=== PATIENT | male | born 1960 | race African-American/Black ===

== ENCOUNTER 2022-09-17 10:46 | Emergency (ER) | payer MEDICARE, MEDICAID, SELFPAY ==
[2022-09-17 10:58] VITALS: BP 140/61; PULSE 87; RESP 22; TEMP 36.6; O2SAT 98; BMI 31.3
[2022-09-17] MEDS: Ondansetron ODT 4 MG TAB.RAPDIS TRANSLINGU (11:02)
--- OUTSIDE RECORDS SUMMARY | 2022-09-17 15:05 | XMS_ITS | Continuity of Care Document ---
:1960 Author Organization [facility] [place] Address [address] [place] [address]- Care Team Providers Name Role Phone Warren Uribe MD Primary Care Physician Encounter [facility] ACCT R [id number] Date(s): 12/12/20 - 01/11/[address] [address]- Attending Physician: Admtr, Ar8 Allergies, Adverse Reactions, Alerts Substance Reaction Severity Status ampicillin hives Active penicillin hives Active Peanuts Active Immunizations Given and Recorded Vaccine Date Status Refusal Reason influenza virus vaccine, inactivated 10/27/18 Given influenza virus vaccine, inactivated 09/19/17 Given influenza virus vaccine, inactivated 11/15/15 Given influenza virus vaccine, inactivated 08/18/14 Given influenza virus vaccine, inactivated 09/15/13 Given influenza virus vaccine, inactivated 07/31/12 Given influenza virus vaccine, inactivated1 11/06/11 Given pneumococcal 23-valent vaccine 07/13/15 Given tetanus/diphtheria/pertussis, acel(Tdap) 01/01/14 Given Human Papillomavirus Vaccine2, 3 07/31/12 Given 1Admin Note: vis [id number] Comment: [id number] Note: VIS 05/19/2012 Medications Aerochamber See Instructions, # 1 each, Maintenance, to be used with albuterol, 12/05/18 15:15:26 EST, Compound Start Date: 12/05/18 Status: OrderedAutoCPAP 8-20 with heated humidification AutoCPAP 8-20 with heated humidification, See Instructions, # 1 each, Refills 0, Tot. Refills 0, Maintenance, use overnight and naps from [facility], 10/22/16 10:06:21, Compound Start Date: 10/22/16 Status: OrderedFlonase 50 mcg/inh nasal spray 2 sprays, Nares, Both, 2 times a day, in each nostril, # 1 each, 2 Refills, Maintenance, 12/12/20 8:15:00 EST, [place], [facility] #[id number], 2 sprays Nares, Both 2 times a day,x30 days,Instr:in each nostril, 170, cm, 12/08/20 0:11:00 EST, Height... Start Date: 12/12/20 Stop Date: 03/12/21 Status: Orderedomeprazole 40 mg oral enteric coated capsule 1 capsule, By Mouth, Daily, # 90 capsule, 0 Refills, Soft Stop, 12/19/20 13:28:00 EST, [facility] #[id number], 170, cm, 12/08/20 0:11:00 EST, Height, 95.1, kg, 12/08/20 0:11:00 EST, Dry Weight Start Date: 12/19/20 Stop Date: 03/19/21 Status: OrderedProAir HFA 90 mcg/inh inhalation aerosol with adapter 2, puffs, Inhalation, 4 times a day, PRN, # 1 each, Refills 5, Tot. Refills 5, Maintenance, 03/24/2012:39:00 EDT, Aerosol, Route to Pharmacy Electronically, [id number], [facility] #[id number], 170, cm, 10/13/19 14:35:00... Start Date: 03/24/20 Stop Date: 09/20/20 Status: OrderedSuprep Bowel Prep Kit oral liquid See Instructions, dose #1- 180 ml evening before colonoscopy, dose #2 - 6 hourse before colonoscopy,# 1 kit, 0 Refills, Acute 01/17/21 7:00:00 EST, 01/16/21 17:00:00 EST, [facility] #[id number], test date 01/17/21, dose #1- 180 ml evening before... Start Date: 01/16/21 Stop Date: 01/17/21 Status: Ordered Problem List Condition Effective Dates Status Health Status Informant Adult-onset obesity(Confirmed) Active Asthma(Confirmed)1 Active Bladder outlet obstruction; [facility] 02/09/11 Active 09/25/19(Confirmed) Nephroureterolithiasis-left(Confirmed) Active 2 Carpal tunnel syndrome of right Active wrist(Confirmed)3 Closed fracture of phalanx of right Active second toe(Confirmed) Diverticulosis of colon(Confirmed)4 Active Complete tear of rotator Active cuff(Confirmed)5, 6 Gastro-esophageal reflux(Confirmed) Active Gout(Confirmed) Active Hypercholesterolemia(Confirmed) Active Prediabetes(Confirmed) Active Insomnia(Confirmed) Active Internal hemorrhoids(Confirmed)7 Active Chronic pain of right knee(Confirmed) Active Localized osteoarthritis(Confirmed)8, Active 9 Macrocytosis without anemia(Confirmed) Active Metabolic acidosis - Active topiramate(Confirmed) Obesity(Confirmed) Active KAPIL (obstructive sleep Active apnea)(Confirmed)10 Osteoarthritis, knee(Confirmed)11 Active Rhinitis(Confirmed) Active Vitamin D deficiency(Confirmed) Active [id number] March 20193and right ulnar; EMG 154colonoscopy JBJS MRI colonoscopy R&I x-ray 04/02/12 both [id number] knee10 Study 1511Right TKR 08/22/15 Social History Social History Type Response Smoking Status Former smoker entered on: 11/17/14 Sex
--- OUTSIDE RECORDS SUMMARY | 2022-09-17 15:05 | XMS_ITS | Continuity of Care Document ---
:1960 Author Organization [facility] Address [address] [place] [address]- Care Team Providers Name Role Phone Jojo LAI, Warren Hidalgo Primary Care Physician [place] [facility] Date(s): 10/27/20 - 11/26/[address] [address]- Allergies, Adverse Reactions, Alerts Substance Reaction Severity [...] Vaccine2, 3 07/31/12 Given 1Admin Note: vis [id number] Comment: [id number] Note: VIS 05/19/2012 Medications Aerochamber See Instructions, # 1 each, Maintenance, to be used with albuterol, 12/05/18 15:15:26 EST, Compound Start Date: 12/05/18 Status: OrderedAutoCPAP 8-20 with heated humidification AutoCPAP 8-20 with heated humidification, See Instructions, # 1 each, Refills 0, Tot. Refills 0, Maintenance, use overnight and naps from [facility], 10/22/16 10:06:21, Compound Start Date: 10/22/16 Status: OrderedFlonase 50 mcg/inh nasal spray 2 sprays, Nares, Both, 2 times a day, in each nostril, # 1 each, 2 Refills, Maintenance, 09/09/20 15:32:00 EDT, [place], [facility] #[id number], 2 sprays Nares, Both 2 times a day,x30 days,Instr:in each nostril, 169, cm, 06/06/20 10:56:00 EDT, [place]... Start Date: 09/09/20 Stop Date: 12/08/20 Status: Orderedomeprazole 40 mg oral enteric coated capsule 1 capsule, By Mouth, Daily, # 90 capsule, 0 Refills, Soft Stop, 09/20/20 13:28:00 EST, [facility] #[id number], 169, cm, 06/06/20 10:56:00 EDT, Height, 83, kg, 05/23/20 8:10:00 EDT, Dry Weight Start Date: 09/20/20 Stop Date: 12/19/20 Status: OrderedProAir HFA 90 mcg/inh inhalation aerosol with adapter 2, puffs, Inhalation, 4 times a day, PRN, # 1 each, Refills 5, Tot. Refills 5, Maintenance, 03/24/2012:39:00 EDT, Aerosol, Route to Pharmacy Electronically, [id number], [facility] #[id number], 170, cm, 10/13/19 14:35:00... Start Date: 03/24/20 Stop Date: 09/20/20 Status: Ordered Problem List Condition Effective Dates Status Health Status Informant Adult-onset obesity(Confirmed) Active Asthma(Confirmed)1 Active Bladder outlet obstruction; [facility] 02/09/11 Active 09/25/19(Confirmed) Nephroureterolithiasis-left(Confirmed) Active 2 Carpal [...] (obstructive sleep Active apnea)(Confirmed)10 Osteoarthritis, knee(Confirmed)11 Active Vitamin D deficiency(Confirmed) Active 9spagvtrxdmcb1WG March 20193and right ulnar; EMG 154colonoscopy 115JBJS MRI colonoscopy 118R&I x-ray 04/02/12 both [id number] knee10 Study 1511Right TKR 08/22/15 Social History Social History Type Response Smoking Status Former smoker entered on: 11/17/14 Sex
--- OUTSIDE RECORDS SUMMARY | 2022-09-17 15:06 | XMS_ITS | Continuity of Care Document ---
:1960 Author Organization [facility] Address [address] [place] [address]- Care Team Providers Name Role Phone Warren Uribe MD Primary Care Physician Encounter [facility] Date(s): 10/18/21 - 11/17/[address] [address]- Allergies, Adverse Reactions, Alerts Substance Reaction Severity Status ampicillin hives Active penicillin hives Active Peanuts Active Immunizations Given and Recorded Vaccine Date Status Refusal Reason SARS-CoV-2 (COVID-19) mRNA-1273 vaccine 10/08/21 Recorded SARS-CoV-2 (COVID-19) mRNA-1273 vaccine 03/07/21 Recorded SARS-CoV-2 (COVID-19) mRNA-1273 vaccine 02/07/21 Recorded influenza virus vaccine, inactivated 10/27/18 Given influenza virus vaccine, inactivated 09/19/17 Given influenza virus vaccine, inactivated 11/15/15 Given influenza virus vaccine, inactivated 08/18/14 Given influenza virus vaccine, inactivated 09/15/13 Given influenza virus vaccine, inactivated 07/31/12 Given influenza virus vaccine, inactivated1 11/06/11 Given pneumococcal 23-valent vaccine 07/13/15 Given tetanus/diphtheria/pertussis, acel(Tdap) 01/01/14 Given Human Papillomavirus Vaccine2, 3 07/31/12 Given 1Admin Note: vis [id number] Comment: [id number] Note: VIS 05/19/2012 Medications Aerochamber See Instructions, # 1 each, Maintenance, to be used with albuterol, 12/05/18 15:15:26 EST, Compound Start Date: 12/05/18 Status: OrderedAutoCPAP 8-20 with heated humidification AutoCPAP 8-20 with heated humidification, See Instructions, # 1 each, Refills 0, Tot. Refills 0, Maintenance, use overnight and naps from [facility], 10/22/16 10:06:21, Compound Start Date: 10/22/16 Status: Orderedfamotidine 40 mg oral tablet 1 tablet = 40 mg, By Mouth, Daily at bedtime, # 30 tablet, 2 Refills, Maintenance, 10/17/21 9:54:00 EST, [facility] #[id number], Partial fill upon patient request if the prescription is for a schedule II opioid drug., 170, cm, 10/17/21 9:33:00 ES... Start Date: 10/17/21 Stop Date: 01/15/22 Status: OrderedFlonase 50 mcg/inh nasal spray 2 sprays, Nares, Both, 2 times a day, in each nostril, # 1 each, 2 Refills, Maintenance, 10/17/21 9:53:00 EST, [place], [facility] #[id number], 2 sprays Nares, Both 2 times a day,x30 days,Instr:in each nostril, 170, cm, 10/17/21 9:33:00 EST, Height... Start Date: 10/17/21 Stop Date: 01/15/22 Status: Orderedindomethacin 50 mg oral capsule 1 capsule = 50 mg, By Mouth, 2 times a day, with food or milk; replace smelioxicam, # 42 capsule, 0 Refills, Maintenance, 11/09/21 8:31:00 EST, [facility] #[id number], Partial fill upon patient request if the prescription is for a schedule II opi... Start Date: 11/09/21 Stop Date: 11/30/21 Status: OrderedProAir HFA 90 mcg/inh inhalation aerosol with adapter 2, puffs, Inhalation, 4 times a day, PRN, # 1 each, Refills 5, Tot. Refills 5, Maintenance, :53:00 EST, Aerosol, Route to Pharmacy Electronically, [id number], [facility] #[id number], 170, cm, 10/17/21 9:33:00 E... Start Date: 10/17/21 Stop Date: 04/15/22 Status: Ordered Problem List Condition Effective Dates Status Health Status Informant Adult-onset obesity(Confirmed) Active Asthma(Confirmed)1 Active Bladder outlet obstruction; [facility] 02/09/11 Active 09/25/19(Confirmed) Nephroureterolithiasis-left(Confirmed) Active 2 Carpal tunnel syndrome of right Active wrist(Confirmed)3 Closed fracture of phalanx of right Active second toe(Confirmed) Diverticulosis of colon(Confirmed)4 Active Complete tear of rotator Active cuff(Confirmed)5, 6 Gastro-esophageal reflux(Confirmed) Active Gout(Confirmed) Active Hallux valgus(Confirmed) Active Hypercholesterolemia(Confirmed) Active Prediabetes(Confirmed) Active Dyspepsia(Confirmed)7 Active Insomnia(Confirmed) Active Internal hemorrhoids(Confirmed)8 Active Chronic pain of right knee(Confirmed) Active Localized osteoarthritis(Confirmed)9, Active 10 Macrocytosis without anemia(Confirmed) Active Metabolic acidosis - Active topiramate(Confirmed) Obese class I(Confirmed) Active Obesity(Confirmed) Active KAPIL (obstructive sleep Active apnea)(Confirmed)11 Osteoarthritis, knee(Confirmed)12 Active Bilateral plantar fasciitis(Confirmed) Active Rhinitis(Confirmed) Active Vitamin D deficiency(Confirmed) Active 5cvdjedxtglrr0ZG March 20193and right ulnar; EMG 154colonoscopy JBJS 146MRI 147see EGD colonoscopy 119R&I x-ray 04/02/12 both knees10 right [id number] 1512Right TKR 08/22/15 Social History Social History Type Response Smoking Status Former smoker entered on: 11/17/14 Sex
--- OUTSIDE RECORDS SUMMARY | 2022-09-17 15:06 | XMS_ITS | Continuity of Care Document ---
:1960 Author Organization [facility] Address [address] [place] [address]- Care Team Providers Name Role Phone Warren Uribe MD Primary Care Physician Encounter [facility] Date(s): 05/31/20 - 07/06/[address] [address]- [facility] Attending Physician: Warren Uribe MD Admitting Physician: Warren Uribe MD Allergies, Adverse Reactions, Alerts Substance Reaction Severity [...] Vaccine2, 3 07/31/12 Given 1Admin Note: vis [id number] Comment: [id number] Note: VIS 05/19/2012 Medications Aerochamber See Instructions, # 1 each, Maintenance, to be used with albuterol, 12/05/18 15:15:26 EST, Compound Start Date: 12/05/18 Status: OrderedAutoCPAP 8-20 with heated humidification AutoCPAP 8-20 with heated humidification, See Instructions, # 1 each, Refills 0, Tot. Refills 0, Maintenance, use overnight and naps from [facility], 10/22/16 10:06:21, Compound Start Date: 10/22/16 Status: OrderedFlonase 50 mcg/inh nasal spray 2 sprays, Nares, Both, 2 times a day, in each nostril, # 1 each, 2 Refills, Maintenance, 06/06/20 11:04:00 EDT, [place], [facility] #[id number], 2 sprays Nares, Both 2 times a day,x30 days,Instr:in each nostril, 169, cm, 06/06/20 10:56:00 EDT, [place]... Start Date: 06/06/20 Stop Date: 09/04/20 Status: Orderedomeprazole 40 mg oral enteric coated capsule 1 capsule, By Mouth, Daily, # 90 capsule, 1 Refills, Soft Stop, 03/24/20 13:28:00 EDT, [facility] #[id number], 03/24/20, 170, cm, 10/13/19 14:35:00 EST, Height, 86.2, kg, 09/23/19 17:45:00 EST, Dry Weight Start Date: 03/24/20 Stop Date: 09/20/20 Status: OrderedProAir HFA 90 mcg/inh inhalation aerosol with adapter 2, puffs, Inhalation, 4 times a day, PRN, # 1 each, Refills 5, Tot. Refills 5, Maintenance, 03/24/2012:39:00 EDT, Aerosol, Route to Pharmacy Electronically, [id number], [facility] #[id number], 170, cm, 10/13/19 14:35:00... Start Date: 03/24/20 [...] Osteoarthritis, knee(Confirmed)11 Active Vitamin D deficiency(Confirmed) Active 1zdpdsciukalc2VP March right ulnar; EMG 154colonoscopy 115JBJS MRI colonoscopy 118R&I x-ray 04/02/12 both [id number] knee10 Study 1Right TKR 08/22/15 Social History Social History Type Response Smoking Status Former smoker entered on: 11/17/14 Sex
--- OUTSIDE RECORDS SUMMARY | 2022-09-17 15:06 | XMS_ITS | Continuity of Care Document ---
:1960 Author Organization [facility] Address [address] [place] [address]- Care Team Providers Name Role Phone Warren Uribe MD Primary Care Physician Encounter [facility] ACCT R [id number] Date(s): 06/06/20 - 07/06/[address] [address]- [facility] Attending Physician: Admtr, Ar8 Allergies, Adverse Reactions, [...] Vaccine2, 3 07/31/12 Given 1Admin Note: vis [id number] Comment: [id number] Note: VIS 05/19/2012 Medications Aerochamber See Instructions, [...] each, 2 Refills, Maintenance, 06/06/20 11:04:00 EDT, [place], [facility] #[id number], 2 sprays Nares, Both 2 times a day,x30 days,Instr:in each nostril, 169, cm, 06/06/20 10:56:00 EDT, [place]... Start Date: 06/06/20 Stop Date: 09/04/20 Status: Orderedomeprazole 40 mg oral enteric coated capsule 1 capsule, By Mouth, Daily, # 90 capsule, 1 Refills, Soft Stop, 03/24/20 13:28:00 EDT, [facility] #[id number], 03/24/20, 170, cm, 10/13/19 14:35:00 EST, Height, 86.2, kg, 09/23/19 17:45:00 EST, Dry Weight Start Date: 03/24/20 Stop Date: 09/20/20 Status: OrderedProAir HFA 90 mcg/inh inhalation aerosol with adapter 2, puffs, Inhalation, 4 times a day, PRN, # 1 each, Refills 5, Tot. Refills 5, Maintenance, 03/24/2012:39:00 EDT, Aerosol, Route to Pharmacy Electronically, [id number], [facility] #[id number], 170, cm, 10/13/19 14:35:00... Start Date: 03/24/20 [...] Osteoarthritis, knee(Confirmed)11 Active Vitamin D deficiency(Confirmed) Active 1aoissiwqrabx3XH March 20193and right ulnar; EMG 154colonoscopy JBJS MRI colonoscopy 118R&I x-ray 04/02/12 both ssjbs2wgzuv knee10 Study 1Right TKR 08/22/15 Social History Social History Type Response Smoking Status Former smoker entered on: 11/17/14 Sex
--- OUTSIDE RECORDS SUMMARY | 2022-09-17 15:06 | XMS_ITS | Continuity of Care Document ---
:1960 Author Organization [facility] Address [address] [place] [address]- Care Team Providers Name Role Phone Warren Uribe MD Primary Care Physician Encounter [facility] Date(s): 12/22/21 - 01/21/[address] [address]- Attending Physician: Admtr, Ar8 Allergies, Adverse Reactions, [...] Vaccine2, 3 07/31/12 Given 1Admin Note: vis [id number] Comment: [id number] Note: VIS 05/19/2012 Medications Aerochamber See Instructions, # 1 each, Maintenance, to be used with albuterol, 12/05/18 15:15:26 EST, Compound Start Date: 12/05/18 Status: Orderedfamotidine 40 mg oral tablet 1 tablet = 40 mg, By Mouth, Daily at bedtime, # 30 tablet, 2 Refills, Maintenance, 10/17/21 9:54:00 EST, [facility] #[id number], Partial fill upon patient request if the prescription is for a schedule II opioid drug., 170, cm, 10/17/21 9:33:00 ES... Start Date: 10/17/21 Stop Date: 01/15/22 Status: OrderedFlonase 50 mcg/inh nasal spray 2 sprays, Nares, Both, 2 times a day, in each nostril, # 1 each, 2 Refills, Maintenance, 10/17/21 9:53:00 EST, [place], [facility] #[id number], 2 sprays Nares, Both 2 times a day,x30 days,Instr:in each nostril, 170, cm, 10/17/21 9:33:00 EST, Height... Start Date: 10/17/21 Stop Date: 01/15/22 Status: OrderedProAir HFA 90 mcg/inh inhalation aerosol with adapter 2, puffs, Inhalation, 4 times a day, PRN, # 1 each, Refills 5, Tot. Refills 5, Maintenance, :53:00 EST, Aerosol, Route to Pharmacy Electronically, [id number], [facility] #[id number], 170, cm, 10/17/21 9:33:00 E... Start Date: [...] Active Rhinitis(Confirmed) Active Vitamin D deficiency(Confirmed) Active 3qzvhssrtuldw0FB March right ulnar; EMG 154colonoscopy 115JBJS 146MRI 147see EGD 218colonoscopy 119R&I x-ray 04/02/12 both knees10 right [id number] 1512Right TKR 08/22/15 Social History Social History Type Response Smoking Status Former smoker entered on: 11/17/14 Sex
== END 2022-09-17 15:02 | disposition left against medical advice (07) ==
PROVIDERS: Emergency Provider Emergency Medicine; PCP Internal Medicine
DX: R10.9 Unspecified abdominal pain (principal)
CPT/HCPCS: 99281; 99283